=== PATIENT | male | born 1970 | race Two or more races ===

== ENCOUNTER 2017-11-19 11:05 | Inpatient (IN) | payer BC, OTHER ==
[~2017-11-19] VITALS: Ht 170.2 cm; Wt 83.0 kg
[2017-11-19] MEDS ORDERED: ALLO300T PO (11:52)
[2017-11-19] MEDS ORDERED: OMEP-110 PO (11:52)
[2017-11-19] MEDS ORDERED: SODIUM CHLORIDE FLUSH 10ML SYR IVF ONE ×2 (12:00→15:00)
[2017-11-19 12:04] LABS: BASOPHILS # (AUTO) 0.03 x10^3/uL (0-0.1); BASOPHILS % (AUTO) 0 % (0-1); EOSINOPHILS # (AUTO) 0.11 x10^3/uL (0-0.4); EOSINOPHILS % (AUTO) 1 % (1-7); LYMPHOCYTES # (AUTO) 2.17 x10^3/uL (1-3.4); LYMPHOCYTES % (AUTO) 20 % (22-44); MD NO; MEAN CORPUSCULAR HEMOGLOBIN 30.5 pg (27.5-34.5); MEAN CORPUSCULAR VOLUME 89.6 fL (81-97); MEAN PLATELET VOLUME 8.6 fL (7.4-10.4); MONOCYTES # (AUTO) 0.77 x10^3/uL (0.2-0.8); MONOCYTES % (AUTO) 7 % (2-9); NEUTROPHILS # (AUTO) 7.96 x10^3/uL (1.8-6.8); NEUTROPHILS % (AUTO) 72 % (42-75); PLATELET COUNT 285 x10^3/uL (130-400); RED BLOOD COUNT 5.89 x10^6/uL (4.38-5.82); RED CELL DISTRIBUTION WIDTH 13.2 % (9.4-14.8)
[2017-11-19 12:10] LABS: ANION GAP 8 mmol/L (5-15); CALCIUM 9.1 mg/dL (8.5-10.1); CHLORIDE 109 mmol/L (98-107)
[2017-11-19 12:13] LABS: ALANINE AMINOTRANSFERASE 29 U/L (12-78); ALKALINE PHOSPHATASE 65 U/L (45-117); BILIRUBIN,TOTAL 1.6 mg/dL (0.2-1.0); TOTAL PROTEIN 8.4 g/dL (6.4-8.2)
[2017-11-19 12:29] LABS: CULTURE INDICATED? YES; MICROSCOPIC INDICATED
[2017-11-19] MEDS ORDERED: SODIUM CHLORIDE 0.9% 1,000ML IVBOLUS ONE (13:00)
[2017-11-19] MEDS ORDERED: CEFOTETAN PMX 1GM/50ML 50 ML ONE (14:18)
[2017-11-19] MEDS ORDERED: CEFOTETAN PMX 1GM/50ML 50 ML IV ONE (14:30)
[2017-11-19] MEDS ORDERED: SODIUM CHLORIDE 0.9% 1,000 ML IV ONE (14:43)
[2017-11-19] MEDS ORDERED: BUPIVACAINE/PF-EPI 0.5% 1:200K ONE (15:23)
[2017-11-19] MEDS ORDERED: SCOPOLAMINE PATCH, 1.5MG PATCH.TD72 TD ONE ×2 (16:03→16:30)
[2017-11-19] MEDS ORDERED: ACETAMINOPHEN 500 MG TABLET ONE (16:04)
[2017-11-19] MEDS ORDERED: GABAPENTIN 300 MG CAPSULE ONE (16:04)
[2017-11-19] MEDS ORDERED: NEOSTIGMINE 1 MG/ML, 10ML ONE (16:10)
[2017-11-19] MEDS ORDERED: ONDANSETRON 2MG/ML, 2ML ONE (16:10)
[2017-11-19] MEDS ORDERED: SUCCINYLCHOLINE 20 MG/ML, 10ML ONE (16:10)
[2017-11-19] MEDS ORDERED: KETOROLAC 30 MG/1 ML ONE (16:10)
[2017-11-19] MEDS ORDERED: PROPOFOL 10 MG/ML, 20ML ONE (16:10)
[2017-11-19] MEDS ORDERED: GLYCOPYRROLATE 0.2MG/1ML, 5ML ONE (16:10)
[2017-11-19] MEDS ORDERED: ROCURONIUM 10 MG/ML,10ML ONE (16:10)
[2017-11-19] MEDS ORDERED: DEXAMETHASONE 4 MG/ML, 1ML ONE (16:10)
[2017-11-19] MEDS ORDERED: CEFAZOLIN 1,000 MG ONE (16:10)
[2017-11-19] MEDS ORDERED: GABAPENTIN 300 MG CAPSULE PO ONE (16:30)
[2017-11-19] MEDS ORDERED: ACETAMINOPHEN 500 MG TABLET PO ONE (16:30)
[2017-11-19] MEDS ORDERED: ACETAMINOPHEN 650 MG/20.3 ML UDC PO PRN (17:00)
[2017-11-19] MEDS ORDERED: MORPHINE SULFATE 4 MG/ML, 1ML IVPush PRN ×2 (17:00→17:30)
[2017-11-19] MEDS ORDERED: ONDANSETRON 2MG/ML, 2ML IVPush PRN (17:00)
[2017-11-19] MEDS ORDERED: OXYcodone 5 MG/5 ML ORAL.SOL UDC PO PRN ×2 (17:00→17:30)
[2017-11-19] MEDS ORDERED: PROMETHAZINE 12.5 MG SUPP PR PRN (17:30)
[2017-11-19] MEDS ORDERED: PROMETHAZINE 25 MG SUPP PR PRN (17:30)
[2017-11-19] MEDS ORDERED: PROMETHAZINE 25 MG/ML, 1ML IV PRN (17:30)
[2017-11-19] MEDS ORDERED: FENTANYL PF 100 MCG/2ML IV PRN (17:30)
[2017-11-19] MEDS ORDERED: HYDROmorphone 1 MG/ML, 1ML IV PRN (17:30)
[2017-11-19] MEDS ORDERED: ONDANSETRON ODT 8 MG PO PRN (17:30)
[2017-11-19] MEDS ORDERED: MEPERIDINE/PF 25MG/0.5ML IVPush PRN (17:30)
[2017-11-19] MEDS: POTASSIUM CHLORIDE 20 MEQ in D5%-0.45% NACL 1,000 ML IV SCH (18:17)
[2017-11-19 19:04] VITALS: BP 111/75
[2017-11-19] MEDS: KETOROLAC 30 MG/1 ML IV PRN (19:45)
[2017-11-20 00:02] VITALS: BP 111/69
[2017-11-20] MEDS: KETOROLAC 30 MG/1 ML IV PRN ×2 (02:45→16:41)
[2017-11-20] MEDS: POTASSIUM CHLORIDE 20 MEQ in D5%-0.45% NACL 1,000 ML IV SCH ×2 (02:46→20:30)
[2017-11-20 03:01] VITALS: BP 104/70
[2017-11-20] MEDS: CEFOTETAN PMX 1GM/50ML 50 ML IVPB SCH ×2 (03:58→15:41)
[2017-11-20 05:08] LABS: BASOPHILS # (AUTO) 0.03 x10^3/uL (0-0.1); BASOPHILS % (AUTO) 0 % (0-1); EOSINOPHILS % (AUTO) 0 % (1-7); LYMPHOCYTES # (AUTO) 1.17 x10^3/uL (1-3.4); LYMPHOCYTES % (AUTO) 11 % (22-44); MD NO; MEAN CORPUSCULAR HEMOGLOBIN 30.1 pg (27.5-34.5); MEAN CORPUSCULAR HGB CONC 33.9 g/dL (33.2-36.2); MEAN PLATELET VOLUME 8.4 fL (7.4-10.4); MONOCYTES # (AUTO) 0.42 x10^3/uL (0.2-0.8); MONOCYTES % (AUTO) 4 % (2-9); NEUTROPHILS # (AUTO) 9.54 x10^3/uL (1.8-6.8); NEUTROPHILS % (AUTO) 85 % (42-75); PLATELET COUNT 270 x10^3/uL (130-400)
[2017-11-20 05:15] LABS: ALBUMIN 2.9 g/dL (3.4-5.0); ANION GAP 8 mmol/L (5-15); CALCIUM 8.2 mg/dL (8.5-10.1); CHLORIDE 108 mmol/L (98-107); CREATININE 1.67 mg/dL (0.7-1.3)
[2017-11-20] MEDS ORDERED: SODIUM CHLORIDE 0.9% 1,000ML IVBOLUS ONE ×2 (07:30)
[2017-11-20 07:43] VITALS: BP 103/60
[2017-11-20 12:17] VITALS: BP 104/70
[2017-11-20 19:50] VITALS: BP 110/70
[2017-11-21 04:41] VITALS: BP 109/70
[2017-11-21 06:00] LABS: BASOPHILS # (AUTO) 0.03 x10^3/uL (0-0.1); BASOPHILS % (AUTO) 0 % (0-1); EOSINOPHILS # (AUTO) 0.18 x10^3/uL (0-0.4); EOSINOPHILS % (AUTO) 3 % (1-7); LYMPHOCYTES # (AUTO) 2.56 x10^3/uL (1-3.4); LYMPHOCYTES % (AUTO) 38 % (22-44); MD NO; MEAN CORPUSCULAR HEMOGLOBIN 30.7 pg (27.5-34.5); MEAN CORPUSCULAR HGB CONC 33.8 g/dL (33.2-36.2); MEAN PLATELET VOLUME 8.5 fL (7.4-10.4); MONOCYTES % (AUTO) 9 % (2-9); NEUTROPHILS # (AUTO) 3.43 x10^3/uL (1.8-6.8); NEUTROPHILS % (AUTO) 50 % (42-75); PLATELET COUNT 239 x10^3/uL (130-400); RED BLOOD COUNT 4.72 x10^6/uL (4.38-5.82); RED CELL DISTRIBUTION WIDTH 13.3 % (9.4-14.8)
[2017-11-21 06:01] LABS: CHLORIDE 111 mmol/L (98-107)
[2017-11-21 06:06] LABS: ANION GAP 7 mmol/L (5-15); CREATININE 1.37 mg/dL (0.7-1.3)
[2017-11-21 06:35] VITALS: BP 110/74
[2017-11-21] MEDS: KETOROLAC 30 MG/1 ML IV PRN (08:08)
[2017-11-21] MEDS: POTASSIUM CHLORIDE 20 MEQ in D5%-0.45% NACL 1,000 ML IV SCH (08:08)
[2017-11-21] MEDS ORDERED: OXYC5TAB2 PO (09:50)
[2017-11-21] MEDS ORDERED: ONDA4TAB7 PO (09:51)
[2017-11-21] MEDS ORDERED: ACET-1757 PO (09:53)
== END 2017-11-21 10:30 | disposition home or self-care (01) | DRG 339 ==
LOC: ED 12:31 → EDIP 14:43 → INTOOBSV 14:43 → 4NOR 18:16 → OBSVTOIN 11-20 09:42 → DCLOUNGE 11-21 10:11
PROVIDERS: ADMIT Surgery; ATTEND Surgery
PROC: 0DTJ4ZZ Resection of Appendix, Percutaneous Endoscopic Approach (ICD-10-PCS; principal; 2017-11-20)
DX: K35.3 Acute appendicitis with localized peritonitis (principal); N17.9 Acute kidney failure, unspecified; K21.9 Gastro-esophageal reflux disease without esophagitis; K75.9 Inflammatory liver disease, unspecified; M10.9 Gout, unspecified; Z88.0 Allergy status to penicillin
CPT/HCPCS: 36415; J3490; 74176; 80048; 80053; 81001; 82040; 82570; 83690; 84300; 85025; 87086; 88304; G0378; J0690; J1100; J1885; J2250; J2405; J2704; J2710; J3010; J3480; J0330; J7030; S0074